=== PATIENT | male | born 1980 | race Caucasian/White ===

== ENCOUNTER 2016-09-12 16:24 | Emergency (ER) | payer SELFPAY ==
[~2016-09-12] VITALS: Ht 162.6 cm; Wt 78.0 kg
[2016-09-12 16:27] VITALS: Ht 162.6 cm; Wt 78.0 kg
[2016-09-12 16:35] VITALS: BP 140/98; PULSE 62; RESP 18
[2016-09-12] MEDS ORDERED: SODIUM CHLORIDE 0.9% 1L IRRIG IRR STA (16:36)
[2016-09-12] MEDS ORDERED: LIDOCAINE 1% (MDV) 20 ML INJ ONE (16:39)
[2016-09-12] MEDS ORDERED: LIDOCAINE 2%/EPI (MDV) 20ML INJ INJ ONE (17:00)
[2016-09-12] MEDS ORDERED: DIPHTH/TET/ACEL PERTUSS (ADULT) 0.5 ML VIAL IM ONE (17:00)
[2016-09-12] MEDS ORDERED: HYDR-902 PO (17:07)
--- NOTE | 2016-09-12 21:40 | ERD ---
ER Documentation Chief Complaint Date/Time DATE: 09/12/16 TIME: 21:38 Chief Complaint LEFT HAND LAC, HPI Patient is a 28-year-old male with no medical problems who presents with left- sided hemiplegia. It happened just prior to arrival. He said the screwdriver slipped and went into his left hand. He was drinking beers at the time. He is right-handed. He said that it is painful. He said that it was a lot of bleeding. Upon review of old medical records this is the patient's first visit to the emergency department. He does not currently have a primary doctor. ROS All systems reviewed and are negative except as per history of present illness. Medications Home Meds Active Scripts Hydrocodone/Acetaminophen ([place] 10-325 Tablet) 1 Each Tablet, 1 TAB PO Q6H Y for PAIN, #7 TAB Prov:MARÍA ELENA LAZCANO MD 09/12/16 Allergies Allergies: Coded Allergies: No Known Allergy (Unverified , 09/12/16) PMhx/Soc Medical and Surgical Hx: pt denies Medical Hx, pt denies Surgical Hx Hx Alcohol Use: Yes Hx Substance Use: No Hx Tobacco Use: No Smoking Status: Never smoker FmHx Family History: No diabetes Physical Exam Vitals Vital Signs Date Time Temp Pulse Resp B/P Pulse Ox O2 Delivery O2 Flow Rate FiO2 09/12/16 16:35 62 18 140/98 99 09/12/16 16:27 98.2 89 18 139/92 99 Physical Exam Const: Patient has his left hand wrapped Head: Atraumatic Eyes: Normal Conjunctiva ENT: Normal External Ears, Nose and Mouth. Neck: Full range of motion..~ No meningismus. Resp: Clear to auscultation bilaterally Cardio: Regular rate and rhythm, no murmurs Abd: Soft, non tender, non distended. Normal bowel sounds Skin: 2 cm laceration to the palmar surface of the left hand which has arterial bleeding Back: No midline or flank tenderness Ext: No cyanosis, or edema Neur: Awake and alert Psych: Normal Mood and Affect Results 24 hrs Current Medications Medications (Trade) Dose Ordered Sig/Velasquez Route PRN Reason Start Time Stop Time Status Last Admin Dose Admin Lidocaine/ Epinephrine (Xylocaine 2%/ Epi (Mdv) 20 ml) 20 ml ONCE ONCE INJ 09/12/16 17:00 09/12/16 17:01 DC Diphtheria/ Tetanus/Acell Pertussis (Adacel) 0.5 ml ONCE ONCE IM 09/12/16 17:00 09/12/16 17:01 DC 09/12/16 17:17 Sodium Chloride (NS (Irrig)) 1,000 ml ONCE STAT IRR 09/12/16 16:36 09/12/16 16:37 DC Lidocaine (Xylocaine 1% (Mdv) 20 ml) 20 ml STK-MED ONCE .ROUTE 09/12/16 16:39 09/12/16 16:40 DC Procedures/MDM Laceration Repair by me: Anesthesia: 1% lidocaine with epinephrine locally Location: Left palm Tendon/Joint/Nerves: No injury Foreign body: None detected after copious irrigation and exploration Technique: Simple Interrupted Sutures Complexity: Complex given the arterial bleeding and the need for using a tourniquet to stop bleeding during the repair Post Closure Length: 2 cm Patient's bleeding was easily controlled in the department and there is no indication of anemia. No evidence of compartment syndrome, neurologic injury, vascular injury, open joint, tendon laceration, or foreign body. Patient is appropriate for outpatient follow up. 48 hour wound check. Scar minimization instructions given. Patient was given a Tdap. The patient will be discharged home and can follow- up with a primary doctor in 48 hours for recheck. He will be given information for the local clinics as he does not currently have a primary doctor. I was able to stop the arterial bleeding with 4 sutures. Critical Care: Time: 35 minutes excluding all billable procedures. Treatments/Evaluations: Close monitoring and treatment of unstable vital signs, cardiorespiratory, and neurologic status, while maintaining tight balance of fluid, respiratory, and cardiac interventions. Departure Diagnosis: Primary Impression: Arterial hemorrhage Additional Impression: Puncture wound Condition: Fair Patient Instructions: Puncture Wound, General Referrals: [facility] Usted se beebe hecho un examen mdico de control que le indica que no est en veronica condicin que requiera tratamiento urgente en el Departamento de Emergencia. Un estudio ms profundo y el tratamiento de arcos condicin pueden esperar sin ningn riesgo hasta que usted sea atendida/o en el consultorio de arcos mdico o veronica cl anna. Es responsabilidad suya arreglar veronica ana para el seguimiento del nissa. MANEJO DE CONDICIONES NO URGENTES EN EL FUTURO 1) Si usted tiene un mdico de atencin primaria: Usted debera llamar a arcos mdico de atencin primaria antes de venir al departamento de emergencia. Despus de las horas de consultorio, arcos doctor o arcos asociado/a est disponible por telfono. El mdico o enfermero de roberto en el servicio telefnico puede asesorarle por allison medio para atender el problema, o nissa contrario se puede programar veronica ana. 2) Si usted no tiene un mdico de atencin primaria: Llame al mdico o clnica de referencia que aparece abajo pratibha las horas de consultorio para hacer veronica ana para que le vean. CLINICAS: [facility] [id number] [facility] [phone] [facility] [[email or web address] [phone] [address] [facility] [address]. [place] [address] [phone] [place] [id number] [phone] [facility] [address] [phone] [address] Additional Instructions: Llame al doctor MAANA y stan veronica ANA PARA DENTRO DE 1-2 JALLOH.Dgale a la secretaria que nosotros le instruimos hacer esta ana.Avise o llame si arcos condicin se empeora antes de la ana. Regresa aqui si peor o no mejor. MARÍA ELENA LAZCANO MD September 12, 2016 21:40
== END 2016-09-12 17:45 | disposition home or self-care (01) ==
LOC: E/R 16:24
DX: S61.432A Puncture wound without foreign body of left hand, initial encounter (principal); R58 Hemorrhage, not elsewhere classified; W26.8XXA Contact with other sharp object(s), not elsewhere classified, initial encounter; Y92.9 Unspecified place or not applicable; Z23 Encounter for immunization
CPT/HCPCS: 90471; 90715